=== PATIENT | male | born 1940 ===

== ENCOUNTER 2020-04-01 09:29 | Outpatient (CLI) | payer OTHER ==
[~2020-04-01 09:29] MED LIST: CHLORDIAZEPO-A1 EACH
== END 2020-04-01 09:31 | disposition home or self-care (01) ==
LOC: RAD 09:29
PROVIDERS: ATTEND Orthopaedic Surgery
DX: M48.02 Spinal stenosis, cervical region (principal); M50.321 Other cervical disc degeneration at C4-C5 level

== ENCOUNTER 2020-11-18 09:30 | Outpatient (CLI) | payer OTHER | END 2020-11-18 09:38 | disposition home or self-care (01) | LOC: RAD 09:30 | PROVIDERS: ATTEND Orthopaedic Surgery | DX: M48.02 Spinal stenosis, cervical region (principal) ==